=== PATIENT | female | born 1980 | race Caucasian/White ===

== ENCOUNTER 2018-05-06 07:09 | Emergency (ER) | payer MEDICAID ==
[~2018-05-06] VITALS: Ht 170.2 cm; Wt 68.0 kg
[~2018-05-06 07:09] MED LIST: ACET500 PO; Advil200 M1 PO
[2018-05-06] MEDS ORDERED: ? ANTIDEPRESSANT (07:42)
[2018-05-06] MEDS ORDERED: ALKASELTZER ×2 (07:43→07:46)
[2018-05-06 08:05] LABS: Source, Urine Voided
[2018-05-06] MEDS ORDERED: Keflex500 MG PO (08:06)
[2018-05-06 08:23] LABS: Blood, Urine 3+ (Neg); Glucose Qualitative, Urine Neg (Neg); Ketones, Urine Neg (Neg); Leukocyte Esterase, Urine 3+ (Neg); Nitrite, Urine Pos (Neg); Protein, Urine 2+ (Neg); Urobilinogen, Urine 2+ (Normal)
[2018-05-06 08:35] LABS: Bilirubin, Urine 2+ (Neg); Color, Urine Orange (P-Yellow)
[2018-05-06 08:36] LABS: Appearance, Urine Cloudy (Clear)
== END 2018-05-06 09:00 | disposition home or self-care (01) ==
LOC: ER 07:09
PROVIDERS: Nurse Practitioner Family
DX: N39.0 Urinary tract infection, site not specified (principal)
CPT/HCPCS: 81025; 87077; 87086; 87186; 99283

== ENCOUNTER → 2019-08-08 | Outpatient (CLI) | payer SELFPAY ==
[~2019-08-08] MED LIST changes: +? ANTIDEPRESSANT; +ALKASELTZER; +Keflex500 MG PO
== END ==
LOC: LAB SHORT 14:28 → LAB 14:28
DX: R35.0 Frequency of micturition (principal)
CPT/HCPCS: 87077; 87086; 87186

== ENCOUNTER → 2021-06-16 | Outpatient (CLI) | payer OTHER ==
[~2021-06-16] MED LIST changes: +ACETAMINOPHEN500 MG PO; +HYDMOR2 PO
[2021-06-16 12:27] LABS: BASOPHILS ABSOLUTE AUTO 0.05 K/mm3 (0.00-0.23); BASOPHILS PERCENT AUTO 1 % (0-2); EOSINOPHILS ABSOLUTE AUTO 0.31 K/mm3 (0.00-0.68); EOSINOPHILS PERCENT AUTO 4 % (0-6); Hematocrit 40.5 % (33.0-51.0); Hemoglobin 12.9 g/dL (11.5-16.0); IMMATURE GRAN ABSOLUTE AUTO 0.02 K/mm3 (0.00-0.10); IMMATURE GRAN PERCENT AUTO 0 % (0-1); LYMPHOCYTES ABSOLUTE AUTO 1.98 K/mm3 (0.84-5.20); LYMPHOCYTES PERCENT AUTO 28 % (21-46); MONOCYTES ABSOLUTE AUTO 0.45 K/mm3 (0.16-1.47); MONOCYTES PERCENT AUTO 6 % (4-13); Mean Corpuscular HGB 30.4 pg (26.0-34.0); Mean Corpuscular HGB Conc 31.9 g/dL (31.5-36.5); Mean Corpuscular Volume 96 fL (80-100); Mean Platelet Volume 9.4 fL (9.1-12.4); NEUTROPHILS ABSOLUTE AUTO 4.31 K/mm3 (1.96-9.15); NEUTROPHILS PERCENT AUTO 61 % (41-73); Platelet Count 244 K/mm3 (150-400); RDW Coefficient Variation 12.6 % (11.7-14.2); RDW Standard Deviation 44.2 fL (35.1-46.3); Red Blood Cell Count 4.24 M/mm3 (3.80-5.20); White Blood Cell Count 7.12 K/mm3 (4.00-11.30)
[2021-06-16 12:43] LABS: International Normalized Ratio 1.04; Prothrombin Time Results 10.9 Sec (9.7-11.5)
[2021-06-16 13:52] LABS: Alanine Aminotransfer (ALT/SGP 20 U/L (12-78); Albumin, Blood 3.7 g/dL (3.4-5.0); Albumin/Globulin Ratio 1.2 (0.8-1.8); Alk Phos 53 U/L (50-136); Anion Gap 5 mmol/L (6-16); Aspartate Aminotrans (AST/SGOT 12 U/L (12-37); Bilirubin, Direct 0.1 mg/dL (0.0-0.3); Bilirubin, Indirect 0.7 mg/dL (0.1-0.7); Bilirubin, Total 0.8 mg/dL (0.1-1.0); Blood Urea Nitrogen 14 mg/dL (8-24); CO2, Blood 27 mmol/L (21-32); Calcium, Blood 9.1 mg/dL (8.5-10.1); Chloride, Blood 108 mmol/L (98-108); Globulin, Blood 3.2 g/dL (2.2-4.0); Glucose, Blood 97 mg/dL (70-99); Sodium, Blood 140 mmol/L (136-145); Total Protein, Blood 6.9 g/dL (6.4-8.2)
[2021-06-16 14:01] LABS: Bun/Creatinine Ratio 16.3 (12.0-20.0); Creatinine, Blood 0.86 mg/dL (0.40-1.00); Glomerular Filtration Rate >60 (60-)
[2021-06-16 14:03] LABS: CHOL/HDL RATIO 3.7; Cholesterol 182 mg/dL (50-200); HDL Cholesterol 49 mg/dL (>39); LDL/HDL RATIO 2.4; Low Density Lipoprotein Chol 116 mg/dL (0-110); Triglycerides 87 mg/dL (30-160); Very Low Density Lipoprot Chol 17 mg/dL (6-32)
[2021-06-16 14:27] LABS: Progesterone 9.94 ng/mL; Thyroid Stimulating Hormone 0.796 uIU/mL (0.360-4.800)
== END | disposition home or self-care (01) ==
LOC: LAB SHORT 11:22 → LAB 11:22
PROVIDERS: Family Medicine
DX: H73.91 Unspecified disorder of tympanic membrane, right ear (principal)
CPT/HCPCS: 36415; 80053; 80061; 82248; 82670; 84144; 84443; 85025; 85610

== ENCOUNTER 2021-06-21 09:58 | Emergency (ER) | payer OTHER ==
[~2021-06-21] VITALS: Ht 172.7 cm; Wt 72.6 kg
[~2021-06-21 09:58] MED LIST changes: -ACETAMINOPHEN500 MG PO; -HYDMOR2 PO
[2021-06-21 11:36] LABS: BASOPHILS ABSOLUTE AUTO 0.04 K/mm3 (0.00-0.23); BASOPHILS PERCENT AUTO 1 % (0-2); EOSINOPHILS ABSOLUTE AUTO 0.38 K/mm3 (0.00-0.68); EOSINOPHILS PERCENT AUTO 5 % (0-6); Hemoglobin 12.2 g/dL (11.5-16.0); IMMATURE GRAN ABSOLUTE AUTO 0.03 K/mm3 (0.00-0.10); IMMATURE GRAN PERCENT AUTO 0 % (0-1); LYMPHOCYTES ABSOLUTE AUTO 1.94 K/mm3 (0.84-5.20); LYMPHOCYTES PERCENT AUTO 24 % (21-46); MONOCYTES ABSOLUTE AUTO 0.55 K/mm3 (0.16-1.47); MONOCYTES PERCENT AUTO 7 % (4-13); Mean Corpuscular HGB Conc 31.3 g/dL (31.5-36.5); Mean Corpuscular Volume 96 fL (80-100); Mean Platelet Volume 9.7 fL (9.1-12.4); NEUTROPHILS ABSOLUTE AUTO 5.15 K/mm3 (1.96-9.15); NEUTROPHILS PERCENT AUTO 64 % (41-73); Platelet Count 247 K/mm3 (150-400); RDW Coefficient Variation 12.5 % (11.7-14.2); RDW Standard Deviation 44.4 fL (35.1-46.3); Red Blood Cell Count 4.07 M/mm3 (3.80-5.20); White Blood Cell Count 8.09 K/mm3 (4.00-11.30)
[2021-06-21 11:54] LABS: Alanine Aminotransfer (ALT/SGP 17 U/L (12-78); Albumin, Blood 3.5 g/dL (3.4-5.0); Albumin/Globulin Ratio 1.2 (0.8-1.8); Alk Phos 51 U/L (50-136); Anion Gap 3 mmol/L (6-16); Aspartate Aminotrans (AST/SGOT 9 U/L (12-37); Bilirubin, Total 0.6 mg/dL (0.1-1.0); Blood Urea Nitrogen 12 mg/dL (8-24); Bun/Creatinine Ratio 15.5 (12.0-20.0); CO2, Blood 30 mmol/L (21-32); Calcium, Blood 8.7 mg/dL (8.5-10.1); Chloride, Blood 105 mmol/L (98-108); Creatinine, Blood 0.78 mg/dL (0.40-1.00); Glomerular Filtration Rate >60 (60-); Glucose, Blood 116 mg/dL (70-99); Potassium, Blood 3.7 mmol/L (3.5-5.5); Sodium, Blood 138 mmol/L (136-145); Total Protein, Blood 6.5 g/dL (6.4-8.2); Uric Acid, Blood 3.7 mg/dL (2.6-6.0)
[2021-06-21] MEDS ORDERED: ACETAMINOPHEN500 MG PO (12:44)
[2021-06-21] MEDS ORDERED: HYDMOR2 PO (12:44)
== END 2021-06-21 13:03 | disposition home or self-care (01) ==
LOC: ER 09:58
PROVIDERS: Emergency Medicine
DX: M48.07 Spinal stenosis, lumbosacral region (principal); M54.42 Lumbago with sciatica, left side; G89.29 Other chronic pain; Z88.5 Allergy status to narcotic agent
CPT/HCPCS: 36415; 72148; 80053; 84550; 85025; 96372; 99284-25; A9270; J1170

== ENCOUNTER → 2022-05-25 | Outpatient (CLI) | payer OTHER ==
[~2022-05-25] MED LIST changes: +ACETAMINOPHEN500 MG PO; +HYDMOR2 PO
== END ==
LOC: LAB SHORT 17:22 → LAB 17:22
DX: N75.0 Cyst of Bartholin's gland (principal)
CPT/HCPCS: 87070; 87075; 87076; 87185; 87205